=== PATIENT | female | born 1950 | race Hispanic/Latino ===

== ENCOUNTER 2019-07-13 11:20 | Emergency (ER) | payer MEDICARE, OTHER ==
[~2019-07-13 11:20] MED LIST: AMOX-429 PO; CHOL200026 PO; CYAN100099 PO; DAPA10TA PO; GINKO BILOBA PO; GLUCOSAMINE 1,1 EACH PO; LEVO25TA54 PO; LINA1TAB5 PO; RAMI5CAP66 PO; SIMV-43 PO
== END 2019-07-13 13:38 | disposition home or self-care (01) ==
LOC: EDH 11:20
DX: T63.441A Toxic effect of venom of bees, accidental (unintentional), initial encounter (principal); E11.9 Type 2 diabetes mellitus without complications; I10 Essential (primary) hypertension; E78.00 Pure hypercholesterolemia, unspecified; Z90.49 Acquired absence of other specified parts of digestive tract; Y92.89 Other specified places as the place of occurrence of the external cause
CPT/HCPCS: 99281

== ENCOUNTER → 2020-07-01 | Outpatient (CLI) | payer OTHER ==
[~2020-07-01] MED LIST changes: +REGADENOSON 0.4 MG/5 ML PF SYG IVP SCH; +SINCALIDE 5 MCG ML VIAL IV ONE
== END | disposition home or self-care (01) ==
LOC: SHCH 07:47
PROVIDERS: ATTEND Internal Medicine Cardiovascular Disease
DX: R07.9 Chest pain, unspecified (principal); R94.31 Abnormal electrocardiogram [ECG] [EKG]
CPT/HCPCS: 78452; 93017; 96374; A9500 ×2; J2785; J2805